=== PATIENT | male | born 1965 | race African-American/Black ===

== ENCOUNTER 2020-01-23 09:09 | Emergency (ER) | payer OTHER ==
[2020-01-23] MEDS ORDERED: Sodium Chloride 0.9% 2.5 ML Syringe FLUSH PRN (10:00)
[2020-01-23] MEDS ORDERED: Sodium Chloride 0.9% 10 ML Syringe FLUSH PRN (10:00)
--- NOTE | 2020-01-23 10:12 | EDM.PDOC ---
ED HPI GENERAL MEDICAL PROBLEM - General Chief Complaint: Back Pain or Injury Stated Complaint: BACK PAIN Time Seen by Provider: 01/23/20 09:13 Source of Information: Reports: Patient History Limitations: Reports: No Limitations - History of Present Illness INITIAL COMMENTS - FREE TEXT/NARRATIVE: 54-year-old male with no past medical history presenting with back pain. 2-day history of right-sided low thoracic back pain radiating to the right lower quadrant. Pain is intermittent, at times he is totally pain-free. Nothing makes the pain better or worse. No history of blunt trauma to the back, or heavy lifting or exertion. Pain described as "sharp", intermittent, rated as 5 out of 10. Denies any midline/spinal pain. Bilateral Lower Back Pain Score (Numeric/FACES): 8 - Related Data Allergies Allergy/AdvReac Type Severity Reaction Status Date / Time No Known Allergies Allergy Verified 01/23/20 09:35 Home Meds: Home Meds . [No Known Home Meds] 01/23/20 [History] Past Medical History - Past Health History Medical/Surgical History: Denies Medical/Surgical History Psychiatric History: Reports: None - Infectious Disease History Infectious Disease History: Reports: None - Past Surgical History HEENT Surgical History: Reports: Oral Surgery Social & Family History - Tobacco Use Smoking Status *Q: Never Smoker - Recreational Drug Use Recreational Drug Use: No ED ROS GENERAL - Review of Systems Review Of Systems: See Below Constitutional: Denies: Fever, Chills HEENT: Reports: No Symptoms Respiratory: Denies: Shortness of Breath Cardiovascular: Denies: Chest Pain Endocrine: Reports: No Symptoms GI/Abdominal: Reports: Abdominal Pain. Denies: Black Stool, Bloody Stool, Constipation, Diarrhea, Decreased Appetite, Melena, Mucous in Stool, Nausea, Vomiting : Reports: Flank Pain. Denies: Discharge, Dysuria, Hematuria, Urgency Musculoskeletal: Reports: Back Pain. Denies: Neck Pain, Shoulder Pain, Arm Pain, Leg Pain, Foot Pain Skin: Denies: Rash Neurological: Denies: Numbness, Paresthesia, Pre-Existing Deficit, Tingling, Difficulty Walking, Weakness, Gait Disturbance Psychiatric: Reports: No Symptoms Hematologic/Lymphatic: Reports: No Symptoms Immunologic: Reports: No Symptoms ED EXAM,LOWER BACK PAIN/INJURY - Physical Exam Exam: See Below Text/Narrative:: Vital signs reviewed. Nursing notes reviewed. Constitutional: Awake, alert, non-distressed. Head: Normocephalic, atraumatic. Eyes: EOMI, conjunctiva normal, no discharge, no scleral icterus. Ears, Nose, Throat: External ears and nose normal, moist oral mucosa. Cardiovascular: 2+ radial pulse, capillary refill less than 2 seconds. Pulmonary: normal work of breathing, no accessory muscle use. Abdomen/GI: Soft, nontender, nondistended, no guarding or rigidity, no masses. No CVA tenderness Musculoskeletal: No deformities. 5/5 strength and sensation intact to light touch to bilateral lower extremities. Integumentary: Appropriate color for ethnicity, warm, dry, no pallor or jaundice, no rash. Neurologic: Alert, answering questions appropriately, normal speech, no facial droop, moving all extremities well. Psychiatric: Appropriate mood and affect, normal thought process. Course - Vital Signs Text/Narrative:: CBC shows normal cell lines. Metabolic panel shows mildly elevated total bilirubin, normal AST, ALT, and alkaline phosphatase. No leukocytosis. Urinalysis shows trace occult blood. Obtained CT imaging of the abdomen/pelvis, which demonstrated 2 large gallstones along with concern for gallbladder wall edema. Ultrasound imaging of the gallbladder demonstrated cholelithiasis with concern for concomitant cholecystitis. Patient is pain-free here in the emergency department. I did discuss the case with Dr. Roland Avila our on-call general surgeon. He is reassured by the fact that the patient is currently pain-free, afebrile, hemodynamically stable, and has no leukocytosis. I did make him aware of the ultrasonographic findings consistent for possible cholecystitis. We will plan to have the patient follow- up with the general surgery clinic in the next 1 to 3 days for reevaluation of cholelithiasis. In the interim, the patient knows to come back to the ER if his pain returns or worsens, if he develops a fever or repeated vomiting, or if he feels worse in any way. Last Recorded V/S: Last Vital Signs Temp 36.2 C 01/23/20 12:32 Pulse 58 L 01/23/20 12:32 Resp 16 01/23/20 12:32 BP 140/81 01/23/20 12:32 Pulse Ox 97 01/23/20 12:32 - Orders/Labs/Meds Orders: Active Orders 24 hr Category Date Time Status NPO Now [Nothing per Oral Now Diet] [DIET] Diet 01/23/20 Dinner Active Sodium Chloride 0.9% [Saline Flush] Med 01/23/20 10:00 Active 10 ml FLUSH ASDIRECTED PRN Sodium Chloride 0.9% [Saline Flush] Med 01/23/20 10:00 Active 2.5 ml FLUSH ASDIRECTED PRN Saline Lock Insert [OM.PC] Stat Oth 01/23/20 10:00 Ordered Medication Orders Sodium Chloride (Saline Flush) 10 ml FLUSH ASDIRECTED PRN PRN Reason: Keep Vein Open Sodium Chloride (Saline Flush) 2.5 ml FLUSH ASDIRECTED PRN PRN Reason: Keep Vein Open Labs: Laboratory Tests 01/23/20 01/23/20 01/23/20 Range/Units 10:10 10:10 10:10 WBC 6.97 (4.0-11.0) K/uL RBC 5.21 (4.50-5.90) M/uL Hgb 15.5 (13.0-17.0) g/dL Hct 47.0 (38.0-50.0) % MCV 90.2 (80.0-98.0) fL MCH 29.8 (27.0-32.0) pg MCHC 33.0 (31.0-37.0) g/dL RDW Std Deviation 41.5 (28.0-62.0) fl RDW Coeff of Hector 13 (11.0-15.0) % Plt Count 208 (150-400) K/uL MPV 10.50 (7.40-12.00) fL Neut % (Auto) 71.4 (48.0-80.0) % Lymph % (Auto) 22.5 (16.0-40.0) % Clay % (Auto) 5.3 (0.0-15.0) % Eos % (Auto) 0.4 (0.0-7.0) % Baso % (Auto) 0.4 (0.0-1.5) % Neut # (Auto) 5.0 (1.4-5.7) K/uL Lymph # (Auto) 1.6 (0.6-2.4) K/uL Clay # (Auto) 0.4 (0.0-0.8) K/uL Eos # (Auto) 0.0 (0.0-0.7) K/uL Baso # (Auto) 0.0 (0.0-0.1) K/uL Nucleated RBC % 0.0 /100WBC Nucleated RBCs # 0 K/uL Sodium 142 (136-148) mmol/L Potassium 4.1 (3.5-5.1) mmol/L Chloride 106 (98-107) mmol/L Carbon Dioxide 27.8 (21.0-32.0) mmol/L BUN 14 (7.0-18.0) mg/dL Creatinine 1.3 (0.8-1.3) mg/dL Est Cr Clr Drug Dosing 62.85 mL/min Estimated GFR (MDRD) > 60.0 ml/min Glucose 104 (74-106) mg/dL Calcium 8.7 (8.5-10.1) mg/dL Total Bilirubin 1.6 H (0.2-1.0) mg/dL AST 22 (15-37) IU/L ALT 33 (14-63) IU/L Alkaline Phosphatase 86 (46-116) U/L Total Protein 7.7 (6.4-8.2) g/dL Albumin 4.2 (3.4-5.0) g/dL Globulin 3.5 (2.6-4.0) g/dL Albumin/Globulin Ratio 1.2 (0.9-1.6) Lipase 310 (73-393) U/L Urine Color YELLOW Urine Appearance CLEAR Urine pH 6.0 (5.0-8.0) Ur Specific [place] 1.025 (1.001-1.035) Urine Protein NEGATIVE (NEGATIVE) mg/dL Urine Glucose (UA) NEGATIVE (NEGATIVE) mg/dL Urine Ketones NEGATIVE (NEGATIVE) mg/dL Urine Occult Blood TRACE-INTACT H (NEGATIVE) Urine Nitrite NEGATIVE (NEGATIVE) Urine Bilirubin NEGATIVE (NEGATIVE) Urine Urobilinogen 0.2 (<2.0) EU/dL Ur Leukocyte Esterase NEGATIVE (NEGATIVE) Urine RBC 0-1 (0-2/HPF) Urine WBC 0-1 (0-5/HPF) Ur Epithelial Cells RARE (NONE-FEW) Urine Bacteria RARE (NEGATIVE) Meds: Medications Generic Name Dose Route Start Last Admin Trade Name Freq PRN Reason Stop Dose Admin Sodium Chloride 10 ml 01/23/20 10:00 Saline Flush FLUSH ASDIRECTED PRN Keep Vein Open Sodium Chloride 2.5 ml 01/23/20 10:00 Saline Flush FLUSH ASDIRECTED PRN Keep Vein Open Discontinued Medications Generic Name Dose Route Start Last Admin Trade Name Tegan PRN Reason Stop Dose Admin Iopamidol 100 ml 01/23/20 11:09 01/23/20 11:10 Isovue Multipack-370 (76%) IVPUSH 01/23/20 11:10 100 ml ONETIME ONE Administration Departure - Departure Time of Disposition: 12:58 Disposition: Home, Self-Care 01 Condition: Good Clinical Impression: Hyperbilirubinemia Cholelithiasis Qualifiers: Cholelithiasis location: gallbladder Cholecystitis presence: without cholecystitis Biliary obstruction: without biliary obstruction Qualified Code(s): K80.20 - Calculus of gallbladder without cholecystitis without obstruction - Discharge Information *PRESCRIPTION DRUG MONITORING PROGRAM REVIEWED*: Not Applicable *COPY OF PRESCRIPTION DRUG MONITORING REPORT IN PATIENT NATALYA: Not Applicable Instructions: Cholelithiasis, [id number], Bilirubin Test Referrals: [facility] - General Surgery [Provider Group] - 3 Days (For reevaluation of your gallstones and pain.) Forms: ED Department Discharge Additional Instructions: Thank you for choosing the [facility] emergency department in [place] for your medical needs today. It was a pleasure caring for you. You were seen in the emergency department for back and abdominal pain. We found that you have some large gallstones in your gallbladder. This can definitely cause pain in the area that you are experiencing. You do not have evidence of active infection or inflammation around your gallbladder at this point. I did discuss your case with our on-call surgeon Dr. Avila who would like for you to be seen in the surgery clinic in the next few days for reevaluation. If your pain worsens, becomes constant, if you develop a fever (temperature 100.4 higher), persistent vomiting, or if you feel worse, you should come back to the ER immediately. We also noticed that 1 of your liver tests, called bilirubin, was elevated. This needs to be repeated in the future at some point, this can be done by family medicine clinic or any primary care clinic. Please return the emergency department immediately if your symptoms worsen or if you feel worse. The following information is given to patients seen in the emergency department who are being discharged. This information is to outline your options for follow-up care. We provide all patients seen in our emergency department with a follow-up referral. The need for follow-up, as well as the timing and circumstances, are variable depending upon the specifics of your emergency department visit. If you don't have a primary care physician on staff, we will provide you with a referral. We always advise you to contact your personal physician following an emergency department visit to inform them of the circumstance of the visit and for follow-up with them and/or the need for any referrals to a consulting specialist. The emergency department will also refer you to a specialist when appropriate. This referral assures that you have the opportunity for follow-up care with a specialist. All of these measure are taken in an effort to provide you with optimal care, which includes your follow-up. Under all circumstances we always encourage you to contact your private physician who remains a resource for coordinating your care. When calling for follow-up care, please make the office aware that this follow-up is from your recent emergency room visit. If for any reason you are refused follow-up, please contact the [facility] Emergency Department at and asked to speak to the emergency department charge nurse. If you do not have a primary care physician that is caring for you, you can contact these clinics below to set up an appointment to establish care: [facility] - Primary Care [address] [place] [id number] [address] Sepsis Event Note (ED) - Evaluation Sepsis Screening Result: No Definite Risk - Focused Exam Vital Signs: Vital Signs Temp Pulse Resp BP Pulse Ox 01/23/20 12:32 36.2 C 58 L 16 140/81 97 01/23/20 11:19 36.2 C 69 16 148/80 H 99 01/23/20 09:32 36.6 C 68 16 143/74 H 98 - My Orders Last 24 Hours: My Active Orders 01/23/20 10:00 Sodium Chloride 0.9% [Saline Flush] 10 ml FLUSH ASDIRECTED PRN Sodium Chloride 0.9% [Saline Flush] 2.5 ml FLUSH ASDIRECTED PRN Saline Lock Insert [OM.PC] Stat 01/23/20 Dinner NPO Now [Nothing per Oral Now Diet] [DIET] - Assessment/Plan Last 24 Hours: My Active Orders 01/23/20 10:00 Sodium Chloride 0.9% [Saline Flush] 10 ml FLUSH ASDIRECTED PRN Sodium Chloride 0.9% [Saline Flush] 2.5 ml FLUSH ASDIRECTED PRN Saline Lock Insert [OM.PC] Stat 01/23/20 Dinner NPO Now [Nothing per Oral Now Diet] [DIET]
[2020-01-23 10:45] LABS: BLOOD UREA NITROGEN,BUN 14 mg/dL (7.0-18.0); CARBON DIOXIDE,CO2 27.8 mmol/L (21.0-32.0); CHLORIDE,CL 106 mmol/L (98-107); GLUCOSE RANDOM 104 mg/dL (74-106); LIPASE 310 U/L (73-393); POTASSIUM,K 4.1 mmol/L (3.5-5.1); SODIUM,NA 142 mmol/L (136-148)
[2020-01-23] MEDS ORDERED: Iopamidol 755 MG/ML 200 ML Multipack Bottle IVPUSH ONE (11:09)
--- NOTE | 2020-01-23 11:34 | CT ---
CT abdomen and pelvis Technique: Multiple axial sections were obtained from above the dome of the diaphragm inferiorly through the pubic symphysis. Intravenous contrast was utilized. No oral contrast has been given. Comparison: No prior abdominal imaging is available. Findings: 2 partially calcified gallstones are seen within the gallbladder. Gallbladder wall appears somewhat thickened with possible gallbladder wall edema. The visualized lung bases show nothing acute. Liver contains no focal parenchymal abnormality. Minimal nodularity within the left adrenal gland is seen which is most likely incidental. Kidneys show symmetric contrast enhancement without hydronephrosis or mass. Pancreas shows no discrete abnormality. Aorta shows no aneurysm. No retroperitoneal adenopathy or mesenteric abnormalities are seen. Appendix is seen which is normal. No pelvic mass or adenopathy is seen. No free fluid or inflammatory change is seen. Bladder wall slightly thickened which is felt to be due to underdistention. Bone window settings were reviewed which shows no acute osseous finding. Fat-containing umbilical hernia is noted. Impression: 1. 2 partially calcified gallstones within the gallbladder. Gallbladder wall appears slightly thickened with questionable gallbladder wall edema. If patient has correlating symptoms of gallbladder disease, ultrasound could be obtained to confirm. 2. Other findings which are felt to be nonacute as described above. Diagnostic code #3 This report was dictated in MDT
--- NOTE | 2020-01-23 12:30 | US ---
INDICATION: Right upper quadrant pain. TECHNIQUE: Ultrasound abdomen limited. Sonographic images of the right upper quadrant were obtained using howell-scale and color Doppler images. COMPARISON: CT abdomen pelvis January 23, 2020. FINDINGS: Liver: Normal in size and echotexture. No masses. No intrahepatic biliary dilatation. Gallbladder: Multiple gallbladder stones are present. There is gallbladder wall thickening measuring 4 mm. Common bile duct: 3 mm. Pancreas: Unremarkable. Right kidney: Normal in size. Normal echotexture and cortex. No masses, stones, or hydronephrosis. Vasculature: Proximal abdominal aorta and IVC are normal. IMPRESSION: Cholelithiasis with gallbladder wall thickening consistent with cholecystitis. Dictated by José Chase MD @ Jan 23 2020 12:26PM Signed by Dr. José Chase @ Jan 23 2020 12:29PM
== END 2020-01-23 13:40 | disposition home or self-care (01) ==
LOC: MW.ED 09:09
DX: K80.20 Calculus of gallbladder without cholecystitis without obstruction (principal); E80.6 Other disorders of bilirubin metabolism
CPT/HCPCS: 36415; 74177; 76705; 80053; 81001; 83690; 85025; 99284; Q9967

== ENCOUNTER 2020-03-05 17:09 | Emergency (ER) | payer OTHER ==
[2020-03-05] MEDS ORDERED: Ketorolac 30 MG/ML SDV IVPUSH ONE (17:37)
[2020-03-05] MEDS ORDERED: Ondansetron 4 MG/2 ML SDV IVPUSH ONE (17:37)
[2020-03-05] MEDS ORDERED: Sodium Chloride 0.9% 2.5 ML Syringe FLUSH PRN ×2 (17:37)
[2020-03-05] MEDS ORDERED: Sodium Chloride 0.9% 10 ML Syringe FLUSH PRN (17:37)
[2020-03-05] MEDS ORDERED: Sodium Chloride 0.9% 1,000 ML IV ONE (17:37)
[2020-03-05] MEDS ORDERED: Dicyclomine 10 MG Cap PO ONE (17:38)
--- NOTE | 2020-03-05 17:41 | EDM.PDOC ---
ED HPI GENERAL MEDICAL PROBLEM - General Chief Complaint: Abdominal Pain Stated Complaint: GALLSTONE FLARE UP Time Seen by Provider: 03/05/20 17:11 - History of Present Illness INITIAL COMMENTS - FREE TEXT/NARRATIVE: History of present illness: Patient presents right upper quadrant abdominal pain that radiates into his right flank no fever no chills started 1 hour prior to arrival after eating he has had similar pain in the past and was diagnosed with gallbladder issues and biliary colic. He was referred to a surgeon but has not seen the surgeon yet. The patient had one episode of vomiting with this onset of pain no other symptoms no prior surgeries Review of systems: As per history of present illness and below otherwise all systems reviewed and negative. Past medical history: As per history of present illness and as reviewed below otherwise noncontributory. Surgical history: As per history of present illness and as reviewed below otherwise noncontributory. Social history: No reported history of drug or alcohol abuse. Family history: As per history of present illness and as reviewed below otherwise noncontributory. Physical exam: HEENT: Atraumatic, normocephalic, pupils reactive, negative for conjunctival pallor or scleral icterus, mucous membranes moist, throat clear, neck supple, nontender, trachea midline. Lungs: Clear to auscultation, breath sounds equal bilaterally, chest nontender. Heart: S1S2, regular, negative for clicks, rubs, or JVD. Abdomen: Soft, nondistended, there is mild right upper quadrant tenderness without rebound or guarding [place] sign is negative.. Negative for masses or hepatosplenomegaly. Negative for costovertebral tenderness. Pelvis: Stable nontender. Genitourinary: Deferred. Rectal: Deferred. Extremities: Atraumatic, negative for cords or calf pain. Neurovascular unremarkable. Neuro: Awake, alert, oriented. Cranial nerves II through XII unremarkable. Cerebellum unremarkable. Motor and sensory unremarkable throughout. Exam nonfocal. Diagnostics: [] Therapeutics: [] Impression: Biliary colic Plan: Give the patient some medication for pain and fluids check some labs reassess. [] Definitive disposition and diagnosis as appropriate pending reevaluation and review of above. Right Flank Pain Score (Numeric/FACES): 10 - Related Data Allergies Allergy/AdvReac Type Severity Reaction Status Date / Time No Known Allergies Allergy Verified 03/05/20 17:27 Home Meds: Home Meds Dicyclomine [Bentyl] 20 mg PO QIDACANDBED #30 tab 03/05/20 [Rx] Past Medical History - Past Health History Medical/Surgical History: Denies Medical/Surgical History Psychiatric History: Reports: None - Infectious Disease History Infectious Disease History: Reports: None - Past Surgical History HEENT Surgical History: Reports: Oral Surgery Other HEENT Surgeries/Procedures: tooth removal Social & Family History - Family History Family Medical History: Noncontributory - Caffeine Use Caffeine Use: Reports: None - Recreational Drug Use Recreational Drug Use: No ED ROS GENERAL - Review of Systems Review Of Systems: See Below ED EXAM, GENERAL - Physical Exam Exam: See Below Course - Vital Signs Text/Narrative:: Patient is reassessed at 6:20 PM he is feeling better the abdomen is soft he will be discharged home with dicyclomine he is educated on low-fat diet and will supplement he is encouraged to call the surgeon on Friday and make follow-up appointment return to the ED for worsening pain not controllable with dicyclomine. Last Recorded V/S: Last Vital Signs Temp 36.1 C 03/05/20 17:29 Pulse 70 03/05/20 17:29 Resp 18 03/05/20 17:29 BP 150/75 H 03/05/20 17:29 Pulse Ox 98 03/05/20 17:29 - Orders/Labs/Meds Orders: Active Orders 24 hr Category Date Time Status Dicyclomine [Bentyl] Med 03/05/20 18:23 Ordered 20 mg PO QIDACANDBED PRN Sodium Chloride 0.9% [Normal Saline] 1,000 ml Med 03/05/20 17:37 Active IV BOLUS Sodium Chloride 0.9% [Saline Flush] Med 03/05/20 17:37 Active 10 ml FLUSH ASDIRECTED PRN Sodium Chloride 0.9% [Saline Flush] Med 03/05/20 17:37 Active 2.5 ml FLUSH ASDIRECTED PRN Sodium Chloride 0.9% [Saline Flush] Med 03/05/20 17:37 Active 2.5 ml FLUSH ASDIRECTED PRN Saline Lock Insert [OM.PC] Stat Oth 03/05/20 17:37 Ordered Medication Orders Sodium Chloride (Normal Saline) 1,000 mls @ 999 mls/hr IV BOLUS ONE Stop: 03/05/20 18:37 Last Admin: 03/05/20 17:51 Dose: 999 mls/hr Documented by: RAJEEV Sodium Chloride (Saline Flush) 2.5 ml FLUSH ASDIRECTED PRN PRN Reason: Keep Vein Open Last Admin: 03/05/20 17:53 Dose: 2.5 ml Documented by: RAJEEV Sodium Chloride (Saline Flush) 2.5 ml FLUSH ASDIRECTED PRN PRN Reason: Keep Vein Open Last Admin: 03/05/20 17:53 Dose: 2.5 ml Documented by: RAJEEV Sodium Chloride (Saline Flush) 10 ml FLUSH ASDIRECTED PRN PRN Reason: Keep Vein Open Last Admin: 03/05/20 17:53 Dose: 10 ml Documented by: RAJEEV Labs: Laboratory Tests 03/05/20 03/05/20 Range/Units 17:48 17:48 WBC 7.89 (4.0-11.0) K/uL RBC 5.22 (4.50-5.90) M/uL Hgb 15.6 (13.0-17.0) g/dL Hct 46.5 (38.0-50.0) % MCV 89.1 (80.0-98.0) fL MCH 29.9 (27.0-32.0) pg MCHC 33.5 (31.0-37.0) g/dL RDW Std Deviation 39.8 (28.0-62.0) fl RDW Coeff of Hector 12 (11.0-15.0) % Plt Count 174 (150-400) K/uL MPV 10.50 (7.40-12.00) fL Neut % (Auto) 77.5 (48.0-80.0) % Lymph % (Auto) 17.0 (16.0-40.0) % [place] % (Auto) 4.1 (0.0-15.0) % Eos % (Auto) 1.1 (0.0-7.0) % Baso % (Auto) 0.3 (0.0-1.5) % Neut # (Auto) 6.1 H (1.4-5.7) K/uL Lymph # (Auto) 1.3 (0.6-2.4) K/uL [place] # (Auto) 0.3 (0.0-0.8) K/uL Eos # (Auto) 0.1 (0.0-0.7) K/uL Baso # (Auto) 0.0 (0.0-0.1) K/uL Nucleated RBC % 0.0 /100WBC Nucleated RBCs # 0 K/uL Sodium 142 (136-148) mmol/L Potassium 3.7 (3.5-5.1) mmol/L Chloride 105 (98-107) mmol/L Carbon Dioxide 28.3 (21.0-32.0) mmol/L BUN 14 (7.0-18.0) mg/dL Creatinine 1.3 (0.8-1.3) mg/dL Est Cr Clr Drug Dosing 62.85 mL/min Estimated GFR (MDRD) > 60.0 ml/min Glucose 152 H (74-106) mg/dL Calcium 9.0 (8.5-10.1) mg/dL Total Bilirubin 1.5 H (0.2-1.0) mg/dL AST 17 (15-37) IU/L ALT 29 (14-63) IU/L Alkaline Phosphatase 89 (46-116) U/L Total Protein 7.3 (6.4-8.2) g/dL Albumin 4.1 (3.4-5.0) g/dL Globulin 3.2 (2.6-4.0) g/dL Albumin/Globulin Ratio 1.3 (0.9-1.6) Lipase 220 (73-393) U/L Meds: Medications Generic Name Dose Route Start Last Admin Trade Name Freq PRN Reason Stop Dose Admin Sodium Chloride 1,000 mls @ 999 mls/hr 03/05/20 17:37 03/05/20 17:51 Normal Saline IV 03/05/20 18:37 999 mls/hr BOLUS ONE Administration Sodium Chloride 2.5 ml 03/05/20 17:37 03/05/20 17:53 Saline Flush FLUSH 2.5 ml ASDIRECTED PRN Administration Keep Vein Open Sodium Chloride 2.5 ml 03/05/20 17:37 03/05/20 17:53 Saline Flush FLUSH 2.5 ml ASDIRECTED PRN Administration Keep Vein Open Sodium Chloride 10 ml 03/05/20 17:37 03/05/20 17:53 Saline Flush FLUSH 10 ml ASDIRECTED PRN Administration Keep Vein Open Discontinued Medications Generic Name Dose Route Start Last Admin Trade Name Tegan PRN Reason Stop Dose Admin Dicyclomine HCl 20 mg 03/05/20 17:38 03/05/20 17:50 Bentyl PO 03/05/20 17:39 20 mg ONETIME ONE Administration Ketorolac Tromethamine 30 mg 03/05/20 17:37 03/05/20 17:50 Toradol IVPUSH 03/05/20 17:38 30 mg ONETIME ONE Administration Ondansetron HCl 4 mg 03/05/20 17:37 03/05/20 17:50 Zofran IVPUSH 03/05/20 17:38 4 mg ONETIME ONE Administration Departure - Departure Time of Disposition: 18:20 Disposition: Home, Self-Care 01 Condition: Good Clinical Impression: Abdominal pain - Discharge Information *PRESCRIPTION DRUG MONITORING PROGRAM REVIEWED*: Not Applicable *COPY OF PRESCRIPTION DRUG MONITORING REPORT IN PATIENT NATALYA: Not Applicable Prescriptions: Dicyclomine [Bentyl] 20 mg PO QIDACANDBED #30 tab Instructions: Biliary Colic, Adult Referrals: PCP,None [Primary Care Provider] - Forms: ED Department Discharge Additional Instructions: The following information is given to patients seen in the emergency department who are being discharged to home. This information is to outline your options for follow-up care. We provide all patients seen in our emergency department with a follow-up referral. The need for follow-up, as well as the timing and circumstances, are variable depending upon the specifics of your emergency department visit. If you don't have a primary care physician on staff, we will provide you with a referral. We always advise you to contact your personal physician following an emergency department visit to inform them of the circumstance of the visit and for follow-up with them and/or the need for any referrals to a consulting specialist. The emergency department will also refer you to a specialist when appropriate. This referral assures that you have the opportunity for follow-up care with a specialist. All of these measure are taken in an effort to provide you with optimal care, which includes your follow-up. Under all circumstances we always encourage you to contact your private physician who remains a resource for coordinating your care. When calling for follow-up care, please make the office aware that this follow-up is from your recent emergency room visit. If for any reason you are refused follow-up, please contact the [facility] Emergency Department at and asked to speak to the emergency department charge nurse. [facility] [place] - General Surgery Professional Building [address] [place] [address], [address] [place] [address] Sepsis Event Note (ED) - Evaluation Sepsis Screening Result: No Definite Risk - Focused Exam Vital Signs: Vital Signs Temp Pulse Resp BP Pulse Ox 03/05/20 17:29 36.1 C 70 18 150/75 H 98 - My Orders Last 24 Hours: My Active Orders 03/05/20 17:37 Sodium Chloride 0.9% [Normal Saline] 1,000 ml IV BOLUS Sodium Chloride 0.9% [Saline Flush] 10 ml FLUSH ASDIRECTED PRN Sodium Chloride 0.9% [Saline Flush] 2.5 ml FLUSH ASDIRECTED PRN Sodium Chloride 0.9% [Saline Flush] 2.5 ml FLUSH ASDIRECTED PRN Saline Lock Insert [OM.PC] Stat 03/05/20 18:23 Dicyclomine [Bentyl] 20 mg PO QIDACANDBED PRN - Assessment/Plan Last 24 Hours: My Active Orders 03/05/20 17:37 Sodium Chloride 0.9% [Normal Saline] 1,000 ml IV BOLUS Sodium Chloride 0.9% [Saline Flush] 10 ml FLUSH ASDIRECTED PRN Sodium Chloride 0.9% [Saline Flush] 2.5 ml FLUSH ASDIRECTED PRN Sodium Chloride 0.9% [Saline Flush] 2.5 ml FLUSH ASDIRECTED PRN Saline Lock Insert [OM.PC] Stat 03/05/20 18:23 Dicyclomine [Bentyl] 20 mg PO QIDACANDBED PRN
[2020-03-05 18:14] LABS: BLOOD UREA NITROGEN,BUN 14 mg/dL (7.0-18.0); CARBON DIOXIDE,CO2 28.3 mmol/L (21.0-32.0); CHLORIDE,CL 105 mmol/L (98-107); GLUCOSE RANDOM 152 mg/dL (74-106); LIPASE 220 U/L (73-393); POTASSIUM,K 3.7 mmol/L (3.5-5.1); SODIUM,NA 142 mmol/L (136-148)
[2020-03-05] MEDS ORDERED: Dicyclomine 10 MG Cap PO PRN (18:23)
== END 2020-03-05 18:43 | disposition home or self-care (01) ==
LOC: MW.ED 17:09
DX: K80.50 Calculus of bile duct without cholangitis or cholecystitis without obstruction (principal)
CPT/HCPCS: 36415; 80053; 83690; 85025; 96361; 96374; 96375; 99284; A9270; J1885; J2405; J7030

== ENCOUNTER 2020-06-12 06:27 | Day surgery (SDC) | payer OTHER ==
[~2020-06-12 06:27] MED LIST: Lactated Ringers 1,000 ML IV SCH; cefOXitin 2 GM in Premix Bag 1 BAG IV ONE
[2020-06-12] MEDS ORDERED: Midazolam 1 MG/ML 2 ML SDV ONE (06:44)
[2020-06-12] MEDS ORDERED: Succinylcholine/Sod PF 100 MG/5 ML SYRINGE IV ONE (06:44)
[2020-06-12] MEDS ORDERED: fentaNYL 100 MCG/2 ML SDV ONE (06:44)
[2020-06-12] MEDS ORDERED: Propofol 200 MG/20 ML SDV ONE (06:44)
[2020-06-12] MEDS ORDERED: Rocuronium Bromide 50 MG/5 ML Syringe ONE (06:44)
[2020-06-12] MEDS ORDERED: Scopolamine 1.5 MG Transdermal Patch TRDERM PRN (07:19)
--- NOTE | 2020-06-12 07:22 | PCM.PREANE ---
Preanesthetic Assessment - Anesthesia/Transfusion/Family Hx Anesthesia History: Prior Anesthesia Without Reaction Family History of Anesthesia Reaction: No Transfusion History: No Prior Transfusion(s) Intubation History: Unknown - Review of Systems General: No Symptoms Pulmonary: No Symptoms Cardiovascular: No Symptoms Gastrointestinal: No Symptoms Neurological: No Symptoms Other: Reports: None - Physical Assessment Vital Signs: Last Vital Signs Temp 36.4 C 06/12/20 07:14 Pulse 83 06/12/20 07:14 Resp 16 06/12/20 07:14 BP 154/72 H 06/12/20 07:14 Pulse Ox 98 06/12/20 07:14 Height: 5 ft 8 in Weight: 95.254 kg ASA Class: 2 Mental Status: Alert & Oriented x3 Airway Class: Mallampati = 1 Dentition: Reports: Normal Dentition Thyro-Mental Finger Breadths: 3 Mouth Opening Finger Breadths: 3 ROM/Head Extension: Full Lungs: Clear to Auscultation, Normal Respiratory Effort Cardiovascular: Regular Rate, Regular Rhythm - Allergies Allergies/Adverse Reactions: Allergies Allergy/AdvReac Type Severity Reaction Status Date / Time No Known Allergies Allergy Verified 06/12/20 07:13 - Blood Blood Available: No - Anesthesia Plan Pre-Op Medication Ordered: None - Acknowledgements Anesthesia Type Planned: General Anesthesia Pt an Appropriate Candidate for the Planned Anesthesia: Yes Alternatives and Risks of Anesthesia Discussed w Pt/Guardian: Yes Pt/Guardian Understands and Agrees with Anesthesia Plan: Yes PreAnesthesia Questionnaire - Past Health History Medical/Surgical History: Denies Medical/Surgical History Cardiovascular History: Reports: None Respiratory History: Reports: None Gastrointestinal History: Reports: Other (See Below) Other Gastrointestinal History: states has occasional heartburn Genitourinary History: Reports: None Musculoskeletal History: Reports: None Neurological History: Reports: None Psychiatric History: Reports: None Endocrine/Metabolic History: Reports: Obesity/BMI 30+ (BMI31.9) Hematologic History: Reports: None Immunologic History: Reports: None Oncologic (Cancer) History: Reports: None Dermatologic History: Reports: None - Infectious Disease History Infectious Disease History: Reports: None - Past Surgical History Head Surgeries/Procedures: Reports: None HEENT Surgical History: Reports: Oral Surgery Other HEENT Surgeries/Procedures: tooth removal Cardiovascular Surgical History: Reports: None GI Surgical History: Reports: None Male Surgical History: Reports: None Musculoskeletal Surgical History: Reports: None Oncologic Surgical History: Reports: None - SUBSTANCE USE Tobacco Use Status *Q: Never Tobacco User - HOME MEDS Home Medications: Home Meds . [No Known Home Meds] 06/06/20 [History] - CURRENT (IN HOUSE) MEDS Current Meds: Current Medications Lactated Ringer's (Ringers, Lactated) 1,000 mls @ 125 mls/hr IV ASDIRECTED [place] Last Admin: 06/12/20 07:12 Dose: 125 mls/hr Documented by: Discontinued Medications Fentanyl (Sublimaze) Confirm Administered Dose 100 mcg .ROUTE .STK-MED ONE Stop: 06/12/20 06:45 Cefoxitin Sodium 2 gm/ Premix 50 mls @ 100 mls/hr IV ONETIME ONE Stop: 06/12/20 06:29 Lidocaine HCl (Xylocaine-Mpf 1%) Confirm Administered Dose 5 ml .ROUTE .STK-MED ONE Stop: 06/12/20 06:45 Midazolam HCl (Versed 1 Mg/Ml) Confirm Administered Dose 2 mg .ROUTE .STK-MED ONE Stop: 06/12/20 06:45 Propofol (Diprivan 20 Ml) Confirm Administered Dose 200 mg .ROUTE .STK-MED ONE Stop: 06/12/20 06:45 Rocuronium [place] (Rocuronium [place]) Confirm Administered Dose 50 mg .ROUTE .STK-MED ONE Stop: 06/12/20 06:45
[2020-06-12] MEDS ORDERED: cefOXitin 100 ML ONE (07:54)
[2020-06-12] MEDS ORDERED: fentaNYL 100 MCG/2 ML SDV IVPUSH PRN (07:54)
[2020-06-12] MEDS ORDERED: HYDROmorphone 2 MG/ML Syringe IVPUSH PRN (07:55)
[2020-06-12] MEDS ORDERED: Dexamethasone 4 MG/ML 5 ML MDV ONE (08:19)
[2020-06-12] MEDS ORDERED: Ondansetron 4 MG/2 ML SDV ONE (08:25)
[2020-06-12] MEDS ORDERED: ePHEDrine 50 MG/ML SDV ONE (08:29)
[2020-06-12] MEDS ORDERED: Glycopyrrolate 0.2 MG/ML SDV ONE ×2 (08:38→08:46)
[2020-06-12] MEDS ORDERED: Scopolamine 1.5 MG Transdermal Patch ONE (09:06)
[2020-06-12] MEDS ORDERED: Morphine 10 MG/ML Syringe IVPUSH PRN (10:14)
[2020-06-12] MEDS ORDERED: Acetaminophen/HYDROcodone 325-5 MG Tab PO PRN (10:14)
[2020-06-12] MEDS ORDERED: Lactated Ringers 1,000 ML IV SCH (10:15)
--- NOTE | 2020-06-12 10:20 | PCM.OPNOTE ---
- General Post-Op/Procedure Note Date of Surgery/Procedure: 06/12/20 Operative Procedure(s): Laparoscopic cholcystectomy. Repair incarcerated umbilical hernia. Pre Op Diagnosis: Cholelithiasis. Incarcerated umbilical hernia. Post-Op Diagnosis: Subacute & chronic cholecystitis and cholelithiasis. Incarcerated umbilical hernia. Anesthesia Technique: General ET Tube (ASA II) Primary Surgeon: Roland Avila Fluid Replacement, Intraop: 1,600 Output, Urine Amount: 100 EBL in mLs: 50 Condition: Good Free Text/Narrative:: DICTATION [id number] CPT CODE 50052/35726
[2020-06-12] MEDS ORDERED: Ketorolac 30 MG/ML SDV ONE (10:52)
--- NOTE | 2020-06-12 11:11 | PCM.POSTAN ---
POST ANESTHESIA ASSESSMENT - MENTAL STATUS Mental Status: Alert, Oriented - VITAL SIGNS Vital Signs: Last Vital Signs Temp 36.6 C 06/12/20 10:15 Pulse 70 06/12/20 10:30 Resp 17 06/12/20 10:30 BP 131/57 L 06/12/20 10:30 Pulse Ox 99 06/12/20 10:30 - RESPIRATORY Respiratory Status: Respiratory Rate WNL, Airway Patent, O2 Saturation Stable - CARDIOVASCULAR CV Status: Pulse Rate WNL, Blood Pressure Stable - GASTROINTESTINAL GI Status: No Symptoms - PAIN Pain Score: 2 - POST OP HYDRATION Hydration Status: Adequate & Stable - OBSERVATIONS Free Text/Narrative:: No anesthesia problems
--- NOTE | 2020-06-12 11:39 | PCM48HPAN ---
Post Anesthesia Note - EVALUATION WITHIN 48HRS OF ANESTHETIC Vital Signs in Normal Range: Yes Patient Participated in Evaluation: Yes Respiratory Function Stable: Yes Airway Patent: Yes Cardiovascular Function Stable: Yes Hydration Status Stable: Yes Pain Control Satisfactory: Yes Nausea and Vomiting Control Satisfactory: Yes Mental Status Recovered: Yes Vital Signs: Last Vital Signs Temp 36.6 C 06/12/20 10:15 Pulse 70 06/12/20 10:30 Resp 17 06/12/20 10:30 BP 131/57 L 06/12/20 10:30 Pulse Ox 99 06/12/20 10:30 - COMMENTS/OBSERVATIONS Free Text/Narrative:: No anesthesia problems
--- NOTE | 2020-06-12 15:37 | OR ---
SURGEON: Roland Avila M.D. DATE OF PROCEDURE: 06/12/2020 OPERATION PERFORMED: 1. Laparoscopic cholecystectomy. 2. Repair of incarcerated umbilical hernia. PRIMARY SURGEON: Roland Avila M.D. ANESTHESIA: General endotracheal. PREOPERATIVE DIAGNOSES: 1. Symptomatic cholelithiasis. 2. Incarcerated umbilical hernia. POSTOPERATIVE DIAGNOSES: 1. Subacute and chronic cholecystitis with cholelithiasis. 2. Incarcerated umbilical hernia. ESTIMATED BLOOD LOSS: 50 mL. INTRAOPERATIVE FLUID REPLACEMENT: 1600 mL of crystalloid. ASA CLASSIFICATION: II. INTRAOPERATIVE URINARY OUTPUT: 100 mL. DESCRIPTION OF PROCEDURE: The patient was taken to the operating room and placed on the operating table in the supine position. Time-out was called for appropriate identification of the patient and procedure. Sequential compression boots were placed. Following satisfactory attainment of general endotracheal anesthesia, a Chu catheter was placed in the patient's urinary bladder. The abdomen was prepped with DuraPrep solution, and sterile drapes were applied. The skin just below the umbilicus was infiltrated with 0.5% Marcaine solution. A skin incision was made in a transverse fashion and deepened through the subcutaneous tissue obtaining hemostasis with the use of electrocautery. Dissection was carried down to the fascia. The Veress needle was introduced into the peritoneal cavity. Saline drop test was positive. Carbon dioxide pneumoperitoneum was established with the release set at 13 cm of water. Once a satisfactory pneumoperitoneum was established, 5 mm camera and port were placed through the infraumbilical incision. The patient was now positioned with his feet down and rolled to the left. Under camera vision, 12 mm subxiphoid, 5 mm midclavicular, and 5 mm anterior axillary ports were placed. Each incision was preemptively infiltrated with 0.5% Marcaine solution. The gallbladder was in a quite lateral position. We were able to mobilize this and bring this into the field. Adhesions in the cholecystohepatic triangle were taken down, and the cystic duct was identified. The cystic duct was traced to its junction with the gallbladder, and a good critical view was obtained. The cystic duct was then hemoclipped proximally and distally and divided with the laparoscopic Metzenbaum scissors. Dissection was carried up along the gallbladder until the cystic artery was identified, and this was likewise hemoclipped proximally and distally before division with the laparoscopic Metzenbaum scissors. The gallbladder was then dissected away from its bed. It should be noted that the gallbladder was quite tense and bile was spilled, although no stones were spilled. Care was taken to aspirate all bile multiple times throughout the procedure. Once the gallbladder was amputated, this was promptly placed in an Endopouch and maintained in situ. The gallbladder bed was inspected, and there was some oozing noted. The gallbladder bed was irrigated with sterile saline solution and no bile was noted. Avitene and Surgicel were placed into the bed of the gallbladder. The right hemidiaphragm was then irrigated with 250 mL of saline containing 20 mL of 0.5% Marcaine solution. That fluid was left in situ. With that accomplished, the Endo Catch containing gallbladder and 12 mm subxiphoid port were removed. Under camera vision, the 5 mm midclavicular and anterior axillary ports were removed, and finally the infraumbilical camera and port were removed. Our dissection was now carried down to the fascia at the infraumbilical position. The hernia contents were able to be reduced, and the hernia itself was repaired with multiple interrupted 0 Ethibond sutures. Once all sutures had been placed and tied, the patient was given a Valsalva maneuver to 45 cm of water. The repair was solid. With that accomplished, the wound was inspected for hemostasis and small bleeding sites were electrocoagulated. The subxiphoid and infraumbilical incisions were closed in 2 layers approximating the subcutaneous tissue with 3-0 Vicryl and the skin with subcuticular 4-0 Monocryl. The anterior axillary and midclavicular incisions were closed with subcuticular 4-0 Monocryl. All incisions were Steri-Stripped and dressed with sterile Tegaderm pads. Sponge, needle, and instrument counts were all correct. Chu catheter was removed prior to emergence from anesthesia. Following emergence from anesthesia and extubation, the patient was taken to recovery room in stable condition. PRISCILLA MCPHERSON /[id number]
== END 2020-06-12 11:55 | disposition home or self-care (01) ==
LOC: MW.SDS 06:27
PROVIDERS: ATTEND Surgery
DX: K80.12 Calculus of gallbladder with acute and chronic cholecystitis without obstruction (principal); K42.0 Umbilical hernia with obstruction, without gangrene; E66.9 Obesity, unspecified; Z68.31 Body mass index [BMI] 31.0-31.9, adult
CPT/HCPCS: 47562; 49587; 88304; A9270; J0131; J0330; J0694; J1100; J1885; J2001; J2250; J2405; J2704; J3490; J7120; 00790; J3010